=== PATIENT | female | born 1965 | race Caucasian/White ===

== ENCOUNTER 2019-12-21 11:57 | Emergency (ER) | payer SELFPAY ==
[~2019-12-21] VITALS: Ht 162.6 cm; Wt 88.0 kg
[2019-12-21 13:00] LABS: MICROSCOPIC INDICATED
--- NOTE | 2019-12-21 13:25 | NUR ---
ASSUMED CARE OF PT AT THIS TIME FROM [facility]. DR. GONZALEZ AT BEDSIDE FOR EVALUATION. 54 Y/O PT REPORTS "I THINK I GOT FOOD POSIONING FROM A BAD SALAD TUESDAY, YESTERDAY I THREW UP TWICE AND HAVING DIARRHEA LAST 2 DAYS, BLACK POOP YESTERDAY. STOMACH IS CRAMPING. BEEN TAKING 650MG OF ASPIRIN EVERY FEW HOURS FOR MY HEADACHE THAT I'VE HAD SINCE TUESDAY NIGHT, THE LIGHT BOTHERS MY EYES AND I'M NAUSEATED." CONT PULSE OX, BP MONITORS APPLIED. VSS. FALL PRECAUTIONS IN PLACE. SIDE RAILS UPX2. MOTHER AT BEDSIDE. ASSESSMENT COMPLETED, NEURO AND CMS INTACT. DENIES CP, SOB, FEVERS, CHILLS, RECENT TRAVEL OR EXPOSURE TO COVID + PERSONS. A&OX4. LAST 650 MG ASPIRIN DOSE APPROXIMATELY 11AM PER PT
[2019-12-21] MEDS ORDERED: ASPI325T17 PO (13:31)
--- NOTE | 2019-12-21 13:37 | NUR ---
PT TO RESTROOM VIA WHEELCHAIR FOR COMFORT WITH MOTHER FOR ASSISTANCE PER PT REQUEST. PT ABLE TO STAND AND AMBULATE WITH STEADY GAIT IN RESTROOM. CLEAN CATCH UA WAS COLLECTED IN TRIAGE/LOBBY AND SENT TO LAB
[2019-12-21] MEDS ORDERED: MAALOX/HYOSCYAMINE/LIDOCAINE 45 ML BTL ONE (13:41)
[2019-12-21] MEDS ORDERED: CEFTRIAXONE PMX 1GM/50ML 50 ML ONE (13:41)
--- NOTE | 2019-12-21 13:57 | NUR ---
IV PLACED, LABS DRAWN, IVF INFUSING PER MD ORDER. VSS. CALL LIGHT IN REACH. FALL PRECUATIONS IN PLACE. RESTING IN POSITION OF COMFORT. REPORTS ABD PAIN IMPROVED S/P GI COCKTAIL "MY STOMACH FEELS BETTER."
[2019-12-21] MEDS ORDERED: CEFTRIAXONE PMX 1GM/50ML 50 ML IV ONE (14:00)
[2019-12-21] MEDS ORDERED: SODIUM CHLORIDE FLUSH 10ML SYR IVF ONE (14:00)
[2019-12-21] MEDS ORDERED: MAALOX/HYOSCYAMINE/LIDOCAINE 45 ML BTL PO ONE (14:00)
[2019-12-21] MEDS ORDERED: SODIUM CHLORIDE 0.9% 1,000ML IVBOLUS ONE (14:00)
--- NOTE | 2019-12-21 14:06 | NUR ---
NO BLOOD CULTURES PRIOR TO ADMIN OF ANTIBIOTIC PER DR. GONZALEZ. DISCUSSED PT ALLERGIES WITH MD, AWARE, TO ADMIN ABX ORDERED.
--- NOTE | 2019-12-21 14:11 | NUR ---
PT REPORTS LANDER[facility] PAIN 12/27, DISCUSSED WITH DR. GONZALEZ AWARE, NO NEW ORDERS RECEIVED AT THIS TIME.
[2019-12-21 14:12] LABS: BASOPHILS # (AUTO) 0.01 x10^3/uL (0-0.1); BASOPHILS % (AUTO) 0 % (0-1); EOSINOPHILS # (AUTO) 0.03 x10^3/uL (0-0.4); EOSINOPHILS % (AUTO) 1 % (1-7); LYMPHOCYTES # (AUTO) 0.46 x10^3/uL (1-3.4); LYMPHOCYTES % (AUTO) 11 % (22-44); MD NO; MEAN CORPUSCULAR HEMOGLOBIN 31.5 pg (27.0-34.8); MEAN CORPUSCULAR HGB CONC 34.3 g/dL (32.4-35.8); MEAN CORPUSCULAR VOLUME 91.8 fL (80-100); MEAN PLATELET VOLUME 8.1 fL (7.4-10.4); MONOCYTES # (AUTO) 0.14 x10^3/uL (0.2-0.8); MONOCYTES % (AUTO) 3 % (2-9); NEUTROPHILS # (AUTO) 3.71 x10^3/uL (1.8-6.8); NEUTROPHILS % (AUTO) 86 % (42-75); PLATELET COUNT 274 x10^3/uL (130-400); RED CELL DISTRIBUTION WIDTH 12.4 % (9.6-15.2)
--- NOTE | 2019-12-21 14:13 | NUR ---
REPORT AND TRANSFER OF CARE TO MIKIE MCKINNON AT THIS TIME
[2019-12-21 14:22] LABS: ALANINE AMINOTRANSFERASE 25 U/L (12-78); ALBUMIN 3.5 g/dL (3.4-5.0); ANION GAP 6 mmol/L (5-15); CALCIUM 8.4 mg/dL (8.5-10.1); CHLORIDE 107 mmol/L (98-107); CREATININE 0.97 mg/dL (0.55-1.02)
[2019-12-21 14:24] LABS: ALKALINE PHOSPHATASE 65 U/L (45-117); BILIRUBIN,TOTAL 0.3 mg/dL (0.2-1.0); TOTAL PROTEIN 8.5 g/dL (6.4-8.2)
--- NOTE | 2019-12-21 14:46 | NUR ---
MIKIE RN: PT ASSISTED TO W/C TO GO TO [facility]OV[facility] FROM [facility] TO W/C. REPORT TO CRISTOBAL NASCIMENTO.
--- NOTE | 2019-12-21 14:52 | NUR ---
REPORT AND CARE BACK FROM [facility] MCKINNON. PT ASSISTED BACK TO ROOM FROM RESTROOM, RESTING IN POSITION OF COMFORT. VSS. CALL LIGHT IN REACH. REPORTS LANDEROS PAIN 01/27, TO DISCUSS WITH ERP. FALL PRECAUTIONS IN PLACE
--- NOTE | 2019-12-21 14:54 | NUR ---
PT DECLINES OFFER FOR PAIN MEDICATION FOR L[place]EROS "I THINK I'LL WAIT AND SEE, THANK YOU FOR OFFER."
--- NOTE | 2019-12-21 15:08 | NUR ---
REPORT AND TRANSFER OF CARE TO PADMINI NASCIMENTO AT THIS TIME.
--- NOTE | 2019-12-21 15:09 | NUR ---
REPORT FROM CRISTOBAL NASCIMENTO. PT RESTING WITH FAMILY AT BEDSIDE. VSS. PT HAS NO NEEDS AT THIS TIME
[2019-12-21] MEDS ORDERED: KETOROLAC 30 MG/1 ML ONE (15:52)
[2019-12-21] MEDS ORDERED: ONDANSETRON 2MG/ML, 2ML ONE (15:52)
[2019-12-21] MEDS ORDERED: KETOROLAC 30 MG/1 ML IVPush ONE (16:00)
[2019-12-21] MEDS ORDERED: SODIUM CHLORIDE 0.9%, 500ML IVBOLUS ONE (16:00)
[2019-12-21] MEDS ORDERED: ONDANSETRON 2MG/ML, 2ML IVPush ONE (16:00)
--- NOTE | 2019-12-21 16:24 | NUR ---
pt assisted to bathroom. Pt medicated and fluids running. pt has no other needs at this time. call light in reach
[2019-12-21 16:36] VITALS: BP 109/65
--- NOTE | 2019-12-21 17:44 | NUR ---
Patient given discharge instructions and they have confirmed that they understand the instructions. Patient ambulatory with steady gait.
== END 2019-12-21 17:46 | disposition home or self-care (01) ==
LOC: ED 16:51
DX: K52.9 Noninfective gastroenteritis and colitis, unspecified (principal); R11.2 Nausea with vomiting, unspecified; Z90.710 Acquired absence of both cervix and uterus
CPT/HCPCS: 36415; 80053; 81001; 83690; 85025; 87086; 96361; 96365; 96375; 99285; J0696; J1885; J2405; J7030; J7040